=== PATIENT | male | born 1995 | race American Indian/Alaskan Native ===

== ENCOUNTER 2018-08-22 09:32 | Emergency (ER) | payer BC, OTHER ==
[2018-08-22 09:44] VITALS: BP 154/85
[2018-08-22] MEDS ORDERED: ROCEPHIN IM ONE (10:12)
[2018-08-22] MEDS ORDERED: FLAGYL PO ONE (10:12)
[2018-08-22] MEDS ORDERED: ZITHROMAX PO ONE (10:12)
[2018-08-22] MEDS ORDERED: XYLOCAINE 1% MPF 5 mL INFILTRATI ONE (10:12)
--- NOTE | 2018-08-22 10:15 | Emergency Department Report ---
ED Male HPI - General Chief complaint: Urogenital-Male Stated complaint: BURNING WHEN URINE Time Seen by Provider: 08/22/18 09:56 Source: patient Mode of arrival: Ambulatory Limitations: No Limitations - History of Present Illness Initial comments: Patient is a 23-year-old male presenting with penile discharge and dysuria for the last 2 days. Patient has had sexual contact without protection. Patient denying any abdominal pain nausea vomiting diarrhea fevers or chills. - Related Data Previous Rx's Medication Instructions Recorded Last Taken Type Acetaminophen/Codeine [Tylenol #3] 1 tab PO Q6H PRN #20 tab 05/18/14 Unknown Rx Ibuprofen [Motrin] 600 mg PO Q8H PRN #50 tablet 05/18/14 Unknown Rx cephALEXin [Keflex] 500 mg PO Q6H #40 capsule 05/18/14 Unknown Rx Allergies Allergy/AdvReac Type Severity Reaction Status Date / Time No Known Allergies Allergy Verified 05/18/14 02:45 ED Review of Systems ROS: Stated complaint: BURNING WHEN URINE Other details as noted in HPI Comment: All other systems reviewed and negative ED Past Medical Hx - Past Medical History Previous Medical History?: No - Surgical History Past Surgical History?: No - Social History Smoking Status: Never Smoker Substance Use Type: Marijuana - Medications Home Medications: Home Medications Medication Instructions Recorded Confirmed Last Taken Type Acetaminophen/Codeine [Tylenol #3] 1 tab PO Q6H PRN #20 tab 05/18/14 Unknown Rx Ibuprofen [Motrin] 600 mg PO Q8H PRN #50 tablet 05/18/14 Unknown Rx cephALEXin [Keflex] 500 mg PO Q6H #40 capsule 05/18/14 Unknown Rx ED Physical Exam - General Limitations: No Limitations General appearance: alert, in no apparent distress - Head Head exam: Present: atraumatic, normocephalic - Eye Eye exam: Present: normal appearance - ENT ENT exam: Present: mucous membranes moist - Neck Neck exam: Present: normal inspection - Respiratory Respiratory exam: Absent: respiratory distress - GI/Abdominal GI/Abdominal exam: Present: soft, normal bowel sounds. Absent: distended, guarding, rebound - Rectal Rectal exam: Present: deferred - Extremities Exam Extremities exam: Present: normal inspection - Back Exam Back exam: Present: normal inspection - Neurological Exam Neurological exam: Present: alert, oriented X3 - Psychiatric Psychiatric exam: Present: normal affect, normal mood - Skin Skin exam: Present: warm, dry, intact, normal color. Absent: rash ED Course Vital Signs 08/22/18 09:42 Temperature 98.0 F Pulse Rate 70 Respiratory 18 Rate Blood Pressure 154/85 O2 Sat by Pulse 100 Oximetry ED Medical Decision Making - Medical Decision Making Patient has a nonmedical emergency however he does have insurance. Patient be treated at this time for presumed sexually transmitted infection. Gonorrhea Chlamydia tests have been sent from his urine. Critical care attestation.: If time is entered above; I have spent that time in minutes in the direct care of this critically ill patient, excluding procedure time. ED Disposition Clinical Impression: Urethritis Disposition: DC-01 TO HOME OR SELFCARE Is pt being admited?: No Does the pt Need Aspirin: No Condition: Stable Instructions: Nonspecific Urethritis in Men (ED) Referrals: COLTEN HEADLEY MD [Primary Care Provider] - 3-5 Days Forms: STI Treatment and Prevention Time of Disposition: 10:15
[2018-08-22 13:41] LABS: Bilirubin,Urine NEG (Negative); Blood,Urine NEG (Negative); Color,Urine Yellow (Yellow); Mucus,Urine 2+ /HPF; Protein,Urine <15 mg/dL mg/dL (Negative); Urobilinogen,Urine < 2.0 mg/dL (<2.0)
== END 2018-08-22 10:53 | disposition home or self-care (01) ==
LOC: ED 09:32
DX: N34.2 Other urethritis (principal); F12.10 Cannabis abuse, uncomplicated; Z79.1 Long term (current) use of non-steroidal anti-inflammatories (NSAID)
CPT/HCPCS: 81001; 87086; 96372; 99283; J0696